=== PATIENT | female | born 1970 | race African-American/Black ===

== ENCOUNTER 2018-04-19 17:54 | Observation (INO) | payer OTHER, SELFPAY ==
[2018-04-19 18:46] LABS: #Monocytes 0.5 thou/uL (0.11-0.59); #Neutrophils 3.2 thou/uL (1.40-6.50); %Basophils 0.5 % (0.0-1.0); %Eosinophils 0.5 % (0.0-10.0); %Lymphocytes 34.8 % (21.0-51.0); %Monocytes 8.6 % (0.0-10.0); %Neutrophils 55.5 % (42.0-75.0); Hemoglobin 13.1 g/dL (12.0-16.0); Mean Corpuscular HGB CONC 34.1 g/dL (32.0-36.0); Mean Corpuscular Volume 90.8 fL (78.0-98.0); Mean Platelet Volume 6.4 fL (7.4-10.4); Platelet Count 261 thou/uL (130-400); RBC Distribution Width 11.8 % (11.5-14.5); Red Blood Cell (RBC) Count 4.24 mill/uL (4.20-5.40); White Blood Cell (WBC) Count 5.7 thou/uL (4.8-10.8)
[2018-04-19 18:53] LABS: Bilirubin Negative (Negative); Blood, Urine Negative (Negative); Clarity CLEAR (Clear); Glucose, Urine (Dipstick) Negative (Negative); Leukocyte Negative (Negative); Nitrite Negative (Negative); Protein, Urine (Dipstick) Negative (Neg-Trace); Specific Gravity, Urine 1.009 (1.002-1.036); pH, Urine 7.5 (5.0-9.0)
[2018-04-19 19:09] LABS: ALT (SGPT) 10 U/L (8-55); AST (SGOT) 17 U/L (5-34); Albumin 4.6 g/dL (3.5-5.0); Alkaline Phosphatase 52 U/L (40-150); Anion Gap 9 mmol/L (10-20); BUN (Urea Nitrogen) 6 mg/dL (7.0-18.7); Bilirubin, Total 0.8 mg/dL (0.2-1.2); Calc. Creatinine Clearance 0 mL/min (70-130); Carbon Dioxide 30 mmol/L (22-29); Chloride 101 mmol/L (98-107); Estimated GFR-MDRD Greater than 90; Globulin 4.2 g/dL (2.4-3.5); Glucose 85 mg/dL (70-105); Potassium 3.4 mmol/L (3.5-5.1); Protein, Total 8.8 g/dL (6.0-8.3); Sodium 137 mmol/L (136-145)
[2018-04-19] MEDS ORDERED: Ondansetron ODT 4 MG TAB ONE (20:32)
--- NOTE | 2018-04-19 21:04 | ULT ---
RIGHT UPPER QUADRANT GALLBLADDER ULTRASOUND: HISTORY: Abdominal pain. COMPARISON: None. FINDINGS: The visualized portion of the pancreas is unremarkable. The portal vein has patent antegrade flow. Hepatic echotexture appears to be relatively normal. The liver measures 14.6 cm in length. The right kidney measures 10.2 x 4.8 x 5.6 cm. The common bile duct measures up to 6 mm with a calcu grace in the common bile duct as it nears the pancreatic head. IMPRESSION: 1. Filling defect within the common bile duct, near the pancreatic head, concerning for partially ob structive choledocholithiasis. Endoscope retrograde cholangiopancreatography recommended. 2. Positive sonographic Post sign may be sequela of an obstructive process within the biliary syst em. POS: [facility]
[2018-04-19] MEDS ORDERED: Ondansetron ODT 4 MG TAB SL PRN (23:10)
[2018-04-19] MEDS ORDERED: Ondansetron HCl/PF 4 MG/2 ML Vial IVP PRN (23:10)
[2018-04-19] MEDS ORDERED: Zolpidem Tartrate 5 MG TAB PO SCH (23:45)
[2018-04-19] MEDS: hydrALAZINE 20 MG/ML VIAL SLOW IVP PRN (23:50)
[2018-04-19] MEDS: Lactated Ringer's 1,000 ML IV SCH (23:55)
[2018-04-20 00:44] VITALS: BMI 31.4
--- NOTE | 2018-04-20 06:13 | HP ---
CHIEF COMPLAINT: Abdominal pain. HISTORY OF PRESENT ILLNESS: This patient is a 47-year-old female, who started experiencing some inte rmittent abdominal pain primarily in the right upper quadrant about a month ago. However, on , 3 days ago, the patient started experiencing more severe pain and this time it was radiating to th e back. With her initial episode, she became diaphoretic and felt like she might pass out. This sub sequently resolved, but she continued to have some intermittent colicky pain until ultimately she had to present to the emergency department because the pain became too severe. She had no associated na usea, vomiting or significant change in her bowel pattern. She has had no fevers or chills. REVIEW OF SYSTEMS: Through 11-system review was otherwise unremarkable other than those things menti oned in history of present illness. PAST MEDICAL HISTORY: Notable for hypertension. PAST SURGICAL HISTORY: Notable for and hysterectomy. FAMILY HISTORY: Reviewed and is unremarkable. SOCIAL HISTORY: The patient is a smoker. She is a nondrinker, nondrug user. She is engaged and con tinues to work two jobs. ALLERGIES: PENICILLIN and HONEY BEE VENOM. HOME MEDICATIONS: Lisinopril/hydrochlorothiazide 20/25 one p.o. daily. PHYSICAL EXAMINATION: VITAL SIGNS: Temperature 98.6, pulse 80, respirations 16, O2 sat 99% on room air, blood pressure is 123/75. GENERAL APPEARANCE: Age appropriate female, in no distress. She is awake, alert, oriented, pleasant , and cooperative. HEENT: PERRL. No OP lesions. NECK: Supple and symmetric without lymphadenopathy. CARDIOVASCULAR: Regular rate and rhythm without murmurs, gallops or rubs. LUNGS: Clear to auscultation bilaterally. ABDOMEN: Soft, nondistended, positive bowel sounds. There is tenderness to palpation, some guarding in the right upper quadrant. SKIN: Warm and dry. LABORATORY DATA AND IMAGING: White count 5.7, hemoglobin 13.1. Sodium 137, potassium 3.4, chloride 101, BUN is 6, creatinine 0.81, bilirubin 0.8, AST 17, ALT 10. Urinalysis is negative. Abdominal ul trasound shows filling defect in the common bile duct near the pancreatic head, concerning for her pa rtially obstructing choledocholithiasis. ERCP was recommended. She also has a positive sonographic Post sign. The common bile duct measures up to 6 mm. ASSESSMENT AND PLAN: 1. Choledocholithiasis. The patient's liver enzymes are normal, but she is having significant disco mfort associated with this. We will continue to hydrate, maintain pain management and consult GI for possible ERCP intervention. 2. Hypertension. The patient had an episode of substantial hypertension earlier, requiring IV hydra lazine. It is substantially improved back to the normal range now. We will continue with her usual home regimen.
[2018-04-20] MEDS: Lactated Ringer's 1,000 ML IV SCH ×4 (07:34→20:22)
[2018-04-20] MEDS ORDERED: Acetaminophen 120 MG Suppository PR PRN (08:27)
[2018-04-20] MEDS ORDERED: Ibuprofen 600 MG TAB PO PRN (08:27)
[2018-04-20] MEDS ORDERED: Acetaminophen 325 MG/10.15 ML UDCUP PO PRN (08:27)
[2018-04-20] MEDS: Lisinopril/Hydrochlorothiazide 20/25 mg Tablet PO SCH ×2 (08:55→18:31)
[2018-04-20] MEDS ORDERED: Promethazine HCl 25 MG/ML VIAL IM/IV PRN (09:29)
[2018-04-20] MEDS ORDERED: Acetaminophen 650 MG in Premix Bag 1 BAG IVPB SCH (09:30)
--- NOTE | 2018-04-20 09:35 | PDOC.EVN ---
Event Note - Event Note Event Note: paged this AM for a headache potentially related to pain medication administration (morphine) Rx given for rectal route of analgesics as well as oral options IV ondansetron already on DEC subsequently re-paged due to patient "sobbing and throwing up" 2 possible etiologies of pain: abdomen and headache Added IV acetaminophen, IV phenergan as needed for symptomatic management If above regimen unable to manage pain, to consider transfer to IMCU for further IV pain medication management
[2018-04-20] MEDS ORDERED: ISOVUE-370 76%-LOCM 1 ML ONE (10:40)
[2018-04-20] MEDS ORDERED: Lidocaine 1% PF 5 ML VIAL ONE (11:25)
[2018-04-20] MEDS ORDERED: Glycopyrrolate 0.2 MG/ML 5 ML SYRINGE ONE (11:25)
[2018-04-20] MEDS ORDERED: Ondansetron HCl/PF 4 MG/2 ML Vial ONE ×2 (11:25→15:00)
[2018-04-20] MEDS ORDERED: PROPOFOL 200 MG/20 ML VIAL ONE (11:25)
[2018-04-20] MEDS ORDERED: Ketorolac Tromethamine 30 MG/ML VIAL ONE (11:25)
[2018-04-20] MEDS ORDERED: Iothalamate Meglumine 60% 50 ML VIAL FS ONE (12:44)
[2018-04-20] MEDS ORDERED: Indomethacin 50 MG SUPP ONE (12:44)
[2018-04-20] MEDS ORDERED: Fentanyl 100 MCG/2 ML VIAL ONE ×4 (12:47→15:43)
[2018-04-20] MEDS ORDERED: Midazolam HCl 2 mg/2 ml Vial ONE (12:47)
[2018-04-20] MEDS ORDERED: Levofloxacin 500 mg/D5W 100 ml Premix Bag ONE (12:51)
--- NOTE | 2018-04-20 13:05 | CON ---
DATE OF CONSULTATION: 04/20/2018 CHIEF COMPLAINT: Abdominal pain. HISTORY OF PRESENT ILLNESS: Ms. Jewell is a 47-year-old woman who has had right upper quadrant, sha rp pain intermittently several times per day over the last month. The pain goes for a couple of jared gael and then fades away; however, last night the pain was more persistent, so she came into the emerg ency room. She gets nauseated after eating, but no vomiting. No diarrhea, constipation or blood in the stool. Her weight has been stable. She had an ultrasound in the emergency room to evaluate her right upper quadrant abdominal pain which showed a filling defect in the common bile duct consistent with choledocholithiasis. Her liver function tests, however, were normal, indicating incomplete bloc kage of the bile duct. She was admitted and given pain medicine. Her primary complaint now has been an intermittent headache, but the abdominal pain is better at the moment. PAST MEDICAL HISTORY: Hypertension. PAST SURGICAL HISTORY: , hysterectomy. FAMILY HISTORY: Negative for GI malignancy. SOCIAL HISTORY: No alcohol, no drugs. She does smoke. REVIEW OF SYSTEMS: Negative x10 systems reviewed except as stated in history of present illness. ALLERGIES: PENICILLIN, HONEY BEES. MEDICATIONS PRIOR TO ADMISSION: Lisinopril with hydrochlorothiazide. PHYSICAL EXAMINATION: VITAL SIGNS: Temperature 98.6, pulse 69, blood pressure 134/80. GENERAL: She is in no acute distress. She is alert and oriented x3. HEENT: Eyes have no scleral icterus. Oropharynx is clear, without lesions. NECK: No cervical or supraclavicular lymphadenopathy. LUNGS: Clear to auscultation bilaterally. HEART: Regular rate and rhythm without murmur. ABDOMEN: Soft. She is tender in the right upper quadrant without guarding. Bowel sounds are presen t. She is nontender, and the rest of her abdomen. EXTREMITIES: No lower extremity edema. NEUROLOGIC: Cranial nerves are grossly intact. LABORATORY: Creatinine 0.81, bilirubin 0.8, AST 17, ALT 10, alkaline phosphatase 52, albumin 4.6. W camila blood cell count 5.7, hemoglobin 13.1, platelets 261. Ultrasound of the abdomen showed a filling defect consistent with a calculus in the common bile duct. The common bile duct measured up to 6 mm in diameter. IMPRESSION: Choledocholithiasis. Her liver function tests are not elevated. However, she may have a nonobstructing stone. Her bile duct is dilated and she presents with intermittent right upper quad rant pain. RECOMMENDATIONS: I will follow through with ERCP. She has being given indomethacin and lactated Rin rocio's bolus to help lower the risk for post-ERCP pancreatitis. The risks and benefits of the procedu re were explained in detail.
[2018-04-20] MEDS ORDERED: Promethazine HCl 25 MG/ML VIAL IM PRN (14:41)
[2018-04-20] MEDS ORDERED: Ondansetron HCl/PF 4 MG/2 ML Vial IVP PRN (14:41)
[2018-04-20] MEDS ORDERED: Promethazine HCl 25 MG/ML VIAL SLOW IVP PRN (14:41)
--- NOTE | 2018-04-20 15:24 | RAD ---
ERCP INTRAOPERATIVE FLUOROSCOPY: HISTORY: Cholecystitis. FINDINGS: Intraoperative fluoroscopy is provided for ERCP. Spot fluoroscopic images show endoscopic catheter a nd contrast overlying the right upper quadrant. There is contrast opacification of a nondilated comm on duct with no filling defect reliably demonstrated. Gallbladder lumen partially opacified. Visual ized intrahepatic biliary radicals are unremarkable. POS: [facility]
[2018-04-20] MEDS ORDERED: Promethazine HCl 25 MG/ML VIAL ONE (15:39)
--- NOTE | 2018-04-20 17:52 | OP ---
DATE OF PROCEDURE: 04/20/2018 PROCEDURE PERFORMED: Endoscopic retrograde cholangiopancreatography with sphincterotomy and balloon sweep of the bile duct. PREOPERATIVE DIAGNOSIS: Choledocholithiasis. She presented with right upper quadrant abdominal pain and tenderness. Ultrasound shows evidence of a stone in the common bile duct. Her LFTs were normal. OPERATIVE NOTE: Informed consent was obtained from the patient. She was given general anesthesia an d placed in the prone position. The side-viewing endoscope was advanced easily to the second portion of the duodenum. There was edematous mucosa, which gives the appearance of submucosal soft nodules around the ampulla. The ampulla was identified and had no significant bile flow from it. The ampull a was cannulated and initially pancreatic duct was cannulated with a wire. The cannula was repositio arlene and ultimately the common bile duct was selectively cannulated with the wire. Cholangiogram was then performed. The cholangiogram showed normal intrahepatic and extrahepatic bile ducts. The commo n bile duct appeared normal overall. The gallbladder did collect some contrast. There was resistanc e to advancement of the catheter at the ampulla. This indicates some degree of ampullary stenosis. A complete sphincterotomy was performed. The 9 mm balloon was then used to sweep the bile duct which passed easily through the sphincterotomy. Occlusion cholangiogram confirmed the duct to be clear. There was rapid drainage of the bile and contrast after sphincterotomy. IMPRESSION: 1. Edematous mucosa with soft submucosal prominence around the ampulla. 2. Normal cholangiogram with normal intra and extrahepatic ducts and common bile duct. 3. Resistance to advancement of the catheter at the level of the ampulla indicating some mild ampull leann stenosis. 4. Complete sphincterotomy performed. 5. A 9 mm balloon was passed through the bile duct and sphincterotomy confirming a clear common bile duct. Occlusion cholangiogram was clear. RECOMMENDATIONS: 1. Follow trend of liver function tests. 2. Evaluate how her right upper quadrant pain responds to the sphincterotomy. 3. Consider cholecystectomy as a next step versus further imaging with CT depending on how her pain and labs indicate.
[2018-04-20] MEDS: hydrALAZINE 20 MG/ML VIAL SLOW IVP PRN (18:32)
--- NOTE | 2018-04-20 18:41 | CT ---
CT ABDOMEN AND PELVIS WITH CONTRAST; 04/20/18 HISTORY: Persistent right upper quadrant pain after ERCP. COMPARISON: Gallbladder ultrasound 05/07/18. There are mild atelectatic changes in the lung bases. No pericardial effusion. Expected intrahepatic biliary gas. There is contrast within the gallbladder. There is left adnexal hypodensity measuring 3.8 cm which may reflect a cyst. There are no dilated loo ps of large or small bowel. There is a hypodensity of the right adrenal gland similar to the comparison examination and has not s ignificantly grown. No hydronephrosis. Normal enhancement of both kidneys. The aortoiliac contour is normal. The appendix is not definitively visualized although there are no secondary signs of acute appendicit is. Pancreas is normal. IMPRESSION: 1. No acute inflammatory process abdomen or pelvis. 2. Expected post ERCP findings. 3. Trace fluid right pericolic gutter may be reactive. 4. Peripheral enhancing hypodensity in the left adnexa may reflect a cyst. 5. Similar appearance to the right adrenal hypodensity. Given the unchanged, this most likely is an adenoma. This is similar dating back to 2013. POS: [facility]
[2018-04-20] MEDS: traMADol HCl 50 MG TAB PO PRN (20:25)
[2018-04-20] MEDS ORDERED: cloNIDine 0.1 MG TAB PO PRN (21:48)
[2018-04-21] MEDS: Lactated Ringer's 1,000 ML IV SCH ×3 (05:19→12:32)
[2018-04-21 06:22] LABS: #Lymphocytes 1.6 thou/uL (1.20-3.40); #Monocytes 0.5 thou/uL (0.11-0.59); #Neutrophils 3.3 thou/uL (1.40-6.50); %Basophils 0.3 % (0.0-1.0); %Eosinophils 0.8 % (0.0-10.0); %Lymphocytes 29.3 % (21.0-51.0); %Monocytes 8.5 % (0.0-10.0); %Neutrophils 61.1 % (42.0-75.0); Hemoglobin 10.8 g/dL (12.0-16.0); Mean Corpuscular HGB CONC 32.3 g/dL (32.0-36.0); Mean Corpuscular Hemoglobin 29.7 pg (27.0-31.0); Mean Corpuscular Volume 91.9 fL (78.0-98.0); Mean Platelet Volume 7.4 fL (7.4-10.4); Platelet Count 241 thou/uL (130-400); RBC Distribution Width 11.7 % (11.5-14.5); Red Blood Cell (RBC) Count 3.64 mill/uL (4.20-5.40); White Blood Cell (WBC) Count 5.4 thou/uL (4.8-10.8)
[2018-04-21 06:46] LABS: ALT (SGPT) 8 U/L (8-55); AST (SGOT) 13 U/L (5-34); Albumin 3.6 g/dL (3.5-5.0); Alkaline Phosphatase 40 U/L (40-150); Anion Gap 10 mmol/L (10-20); BUN (Urea Nitrogen) 5 mg/dL (7.0-18.7); Bilirubin, Total 0.8 mg/dL (0.2-1.2); Calc. Creatinine Clearance 125 mL/min (70-130); Calcium 8.8 mg/dL (7.8-10.44); Carbon Dioxide 24 mmol/L (22-29); Chloride 104 mmol/L (98-107); Estimated GFR-MDRD Greater than 90; Globulin 3.1 g/dL (2.4-3.5); Glucose 95 mg/dL (70-105); Potassium 3.8 mmol/L (3.5-5.1); Protein, Total 6.7 g/dL (6.0-8.3); Sodium 134 mmol/L (136-145)
[2018-04-21] MEDS: Lisinopril/Hydrochlorothiazide 20/25 mg Tablet PO SCH (08:42)
--- NOTE | 2018-04-21 14:25 | PRG ---
DATE OF SERVICE: 04/21/2018 SUBJECTIVE: Ms. Jewell continues to have the right upper quadrant abdominal pain, which is unchange d compared to when she came in. She has had some nausea, for which she has received antiemetics. Sh wei had a normal bowel movement the day before she came in. She has had no change in her pain followin g ERCP. OBJECTIVE: VITAL SIGNS: Temperature 98.4, pulse 79, blood pressure 151/84. GENERAL: She is in no acute distress. She is awake and alert. LUNGS: Clear to auscultation bilaterally. HEART: Regular rate and rhythm. ABDOMEN: Soft, tender in the right upper quadrant and also in right side of the umbilicus. She has no guarding. Bowel sounds are present. EXTREMITIES: Have no lower extremity edema. LABORATORY DATA: Her creatinine 0.72, bilirubin 0.8, AST 13, ALT 8, alkaline phosphatase 40, albumin 3.6. White blood cell count 5.4, hemoglobin 10.8, platelets 241. IMPRESSION: Right upper quadrant to right periumbilical abdominal pain. This may be a functional pa in. She had a suspected stone by ultrasound. However, ERCP showed no evidence of gallstone. She un derwent sphincterotomy and balloon sweep of the bile duct to confirm the duct was clear. There were no stones in the gallbladder. She has had no improvement in the pain after ERCP. CT scan was then p erformed, which again shows no obvious source for her pain. No inflammatory changes in the bowel or around the pancreas. RECOMMENDATIONS: 1. She is tolerating a clear liquid diet well currently. 2. We will plan a HIDA scan for tomorrow morning. If this is abnormal, then proceed with surgical c onsultation for cholecystectomy. 3. If the HIDA scan is normal, then continue a clear liquid diet and give a bowel prep tomorrow for colonoscopy the next day.
--- NOTE | 2018-04-21 15:10 | PDOC.PN ---
- Subjective Encounter Start Date: 04/21/18 Encounter Start Time: 15:08 Subjective: nsg notes rev, joelle ovn, lying in hospital bed, mother at bedside -: reviewed again H&P, notes that in the past month, pain has been less severe -: and occurs approx 30 min post oral intake - even a large amount of water will precipitate the discomfort - Objective Resuscitation Status: Resuscitation Status FULL:Full Resuscitation Vital Signs & Weight: Vital Signs (12 hours) Temp Pulse Resp BP BP Pulse Ox 04/21/18 11:57 98.4 F 79 16 151/84 H 100 04/21/18 08:42 71 125/81 04/21/18 08:11 98.8 F 71 14 125/81 100 04/21/18 07:22 98.7 F 72 16 04/21/18 03:33 98.7 F 72 16 126/77 100 I&O: 04/20/18 04/21/18 04/22/18 06:59 06:59 06:59 Intake Total 2623 Balance 2623 Result Diagrams: 04/21/18 05:26 04/21/18 05:27 Phys Exam - Physical Examination Constitutional: NAD HEENT: PERRLA, moist MMs, sclera anicteric Respiratory: no wheezing, no rales, no rhonchi, clear to auscultation bilateral Cardiovascular: RRR, no significant murmur, no rub Gastrointestinal: soft, no distention, positive bowel sounds TTP RUQ and epigastrium Musculoskeletal: no edema, pulses present Neurological: moves all 4 limbs Psychiatric: normal affect, A&O x 3 Dx/Plan - Plan * RUQ pain * neg ERCP * LFTs unremarkable * plan for HIDA * apprec GI c/s * ? functional abd pain * trial protonix 40mg IV BID diet: currently clear lliq, will need to be NPO pre HIDA activity: as nilda dvt ppx Review of Systems - Medications/Allergies Allergies/Adverse Reactions: Allergies Allergy/AdvReac Type Severity Reaction Status Date / Time Penicillins Allergy Verified 07/09/13 11:55 venom-honey bee Allergy Verified 07/09/13 11:55 [bee venom (honey bee)] Medications: Current Medications Acetaminophen (Tylenol) 120 mg AK Q4H PRN PRN Reason: Headache/Fever or Pain Acetaminophen (Tylenol Elixir) 325 mg PO Q6H PRN PRN Reason: Headache/Fever or Pain Clonidine (Catapres) 0.1 mg PO Q4H PRN PRN Reason: SBP > 180/100 Last Admin: 04/20/18 22:15 Dose: 0.1 mg Lisinopril/HCTZ (Prinizide 20-25) 1 tab PO DAILY [facility] Last Admin: 04/21/18 08:42 Dose: 1 tab Hydralazine HCl (Apresoline) 10 mg SLOW IVP Q6H PRN PRN Reason: SBP Greater Than 180 Last Admin: 04/20/18 18:32 Dose: 10 mg Pantoprazole Sodium (Protonix) 40 mg IVP Q12HR [facility] Promethazine HCl (Phenergan) 25 mg IM/IV Q6H PRN PRN Reason: Nausea/Vomiting Last Admin: 04/20/18 09:44 Dose: 25 mg Sodium Chloride (Flush - Normal Saline) 10 ml IVF Q12HR [facility] Last Admin: 04/21/18 08:43 Dose: Not Given Sodium Chloride (Flush - Normal Saline) 10 ml IVF PRN PRN PRN Reason: Saline Flush Tramadol HCl (Ultram) 50 mg PO Q4H PRN PRN Reason: Pain Last Admin: 04/20/18 20:25 Dose: 50 mg
[2018-04-21] MEDS: traMADol HCl 50 MG TAB PO PRN ×2 (16:42→20:40)
[2018-04-21] MEDS: Zolpidem Tartrate 5 MG TAB PO SCH (20:40)
[2018-04-21] MEDS: Pantoprazole 40 MG VIAL IVP SCH (20:40)
[2018-04-22] MEDS: Acetaminophen 325 MG TAB PO PRN ×2 (04:23→13:04)
[2018-04-22 05:58] LABS: #Lymphocytes 1.9 thou/uL (1.20-3.40); #Monocytes 0.5 thou/uL (0.11-0.59); #Neutrophils 2.7 thou/uL (1.40-6.50); %Basophils 0.6 % (0.0-1.0); %Eosinophils 0.8 % (0.0-10.0); %Monocytes 9.1 % (0.0-10.0); %Neutrophils 52.5 % (42.0-75.0); Hemoglobin 12.1 g/dL (12.0-16.0); Mean Corpuscular Hemoglobin 30.8 pg (27.0-31.0); Mean Corpuscular Volume 90.6 fL (78.0-98.0); Mean Platelet Volume 6.7 fL (7.4-10.4); Platelet Count 247 thou/uL (130-400); RBC Distribution Width 11.4 % (11.5-14.5); Red Blood Cell (RBC) Count 3.94 mill/uL (4.20-5.40); White Blood Cell (WBC) Count 5.2 thou/uL (4.8-10.8)
[2018-04-22 06:06] LABS: ALT (SGPT) 8 U/L (8-55); AST (SGOT) 13 U/L (5-34); Albumin 3.9 g/dL (3.5-5.0); Alkaline Phosphatase 42 U/L (40-150); Anion Gap 13 mmol/L (10-20); BUN (Urea Nitrogen) 5 mg/dL (7.0-18.7); Bilirubin, Total 0.9 mg/dL (0.2-1.2); Calc. Creatinine Clearance 129 mL/min (70-130); Calcium 9.2 mg/dL (7.8-10.44); Carbon Dioxide 22 mmol/L (22-29); Chloride 103 mmol/L (98-107); Estimated GFR-MDRD Greater than 90; Globulin 3.6 g/dL (2.4-3.5); Glucose 94 mg/dL (70-105); Potassium 3.6 mmol/L (3.5-5.1); Protein, Total 7.5 g/dL (6.0-8.3); Sodium 134 mmol/L (136-145)
[2018-04-22] MEDS: traMADol HCl 50 MG TAB PO PRN ×2 (13:05→18:17)
[2018-04-22] MEDS: Lisinopril/Hydrochlorothiazide 20/25 mg Tablet PO SCH (13:05)
[2018-04-22] MEDS: Pantoprazole 40 MG VIAL IVP SCH ×2 (13:05→20:09)
--- NOTE | 2018-04-22 13:13 | PRG ---
DATE OF SERVICE: 04/22/2018 SUBJECTIVE: Ms. Jewell continues to have the right-sided abdominal pain. She is undergoing HIDA sc an this afternoon. OBJECTIVE: VITAL SIGNS: Temperature 98.2, pulse 75, blood pressure 122/72. GENERAL: She is in no acute distress. She is alert and oriented x3. LUNGS: Clear to auscultation bilaterally. HEART: Regular rate and rhythm. ABDOMEN: Tender in the right upper abdomen to right periumbilical area. There is no guarding today. EXTREMITIES: No lower extremity edema. LABORATORY DATA: White blood cell count 5.2, hemoglobin 12.1, platelets 247. Creatinine 0.7. LFTs remain normal. IMPRESSION: Right upper quadrant to right periumbilical abdominal pain. CT scan is negative for obv ious source for her pain. ERCP revealed no stones in the bile duct which was thought to have been se en by ultrasound. RECOMMENDATIONS: 1. If the HIDA scan is abnormal today, then we will consult General Surgery to evaluate for a cholec ystectomy. 2. If the HIDA scan is normal, then we will give a bowel prep this evening for colonoscopy tomorrow.
--- NOTE | 2018-04-22 14:27 | NM ---
HEPATOBILIARY SCAN: Comparison: None. History: Right upper quadrant abdominal pain. Technique: A hepatobiliary scan was performed after administration of 4.6 mCi Technetium 99M Mebrofen in. FINDINGS: Prompt uptake of the radiopharmaceutical by the liver is seen. Biliary activity is seen within 15 min utes. Gallbladder activity is seen within 30 minutes. Bowel activity is seen within 20 minutes. A gallbladder ejection fraction was estimated after giving CCK. This is estimated at 17%. IMPRESSION: Poor gallbladder ejection fraction can be seen with gallbladder dyskinesia. POS: [facility]
[2018-04-22] MEDS ORDERED: Bisacodyl 5 MG TAB PO PRN (16:49)
[2018-04-22] MEDS ORDERED: Senokot 8.6 MG TAB PO PRN (16:49)
[2018-04-22] MEDS: Zolpidem Tartrate 5 MG TAB PO SCH (20:09)
--- NOTE | 2018-04-22 23:43 | PDOC.PN ---
- Subjective Encounter Start Date: 04/22/18 Encounter Start Time: 14:00 Subjective: nsg notes rev, joelle ovn, still has RUQ abd pain, at bedside - Objective Resuscitation Status: Resuscitation Status FULL:Full Resuscitation Vital Signs & Weight: Vital Signs (12 hours) Temp Pulse Resp BP BP Pulse Ox 04/22/18 23:36 98.3 F 78 16 125/75 100 04/22/18 20:27 99.1 F 80 20 145/90 H 100 04/22/18 20:09 99.1 F 80 20 04/22/18 15:15 98.6 F 90 14 126/73 100 04/22/18 13:05 77 155/93 H 04/22/18 13:00 99.4 F 77 16 155/93 H 99 I&O: 04/21/18 04/22/18 04/23/18 06:59 06:59 06:59 Intake Total 2623 1500 2355 Balance 2623 1500 2355 Result Diagrams: 04/23/18 05:29 04/23/18 05:29 Phys Exam - Physical Examination Constitutional: NAD HEENT: PERRLA, moist MMs, sclera anicteric Respiratory: no wheezing, no rales, no rhonchi Cardiovascular: RRR, no significant murmur, no rub Gastrointestinal: soft, positive bowel sounds ttp RUQ, epigastrium Musculoskeletal: no edema, pulses present Neurological: moves all 4 limbs Psychiatric: normal affect, A&O x 3 Dx/Plan - Plan * * RUQ pain, persistent * neg ERCP * LFTs unremarkable * plan for HIDA * apprec GI c/s * ? functional abd pain * trial protonix 40mg IV BID diet:clear liq activity: as nilda dvt ppx Review of Systems - Medications/Allergies Allergies/Adverse Reactions: Allergies Allergy/AdvReac Type Severity Reaction Status Date / Time Penicillins Allergy Verified 07/09/13 11:55 venom-honey bee Allergy Verified 07/09/13 11:55 [bee venom (honey bee)] Medications: Current Medications Acetaminophen (Tylenol) 120 mg SC Q4H PRN PRN Reason: Headache/Fever or Pain Acetaminophen (Tylenol) 325 mg PO Q6H PRN PRN Reason: Headache/Fever or Pain Last Admin: 04/23/18 03:37 Dose: 325 mg Bisacodyl (Dulcolax) 10 mg PO DAILYPRN PRN PRN Reason: Constipation Clonidine (Catapres) 0.1 mg PO Q4H PRN PRN Reason: SBP > 180/100 Last Admin: 04/20/18 22:15 Dose: 0.1 mg Lisinopril/HCTZ (Prinizide 20-25) 1 tab PO DAILY [facility] Last Admin: 04/22/18 13:05 Dose: 1 tab Hydralazine HCl (Apresoline) 10 mg SLOW IVP Q6H PRN PRN Reason: SBP Greater Than 180 Last Admin: 04/20/18 18:32 Dose: 10 mg Pantoprazole Sodium (Protonix) 40 mg IVP Q12HR [facility] Last Admin: 04/22/18 20:09 Dose: 40 mg Promethazine HCl (Phenergan) 25 mg IM/IV Q6H PRN PRN Reason: Nausea/Vomiting Last Admin: 04/20/18 09:44 Dose: 25 mg Senna (Senokot) 2 tab PO HSPRN PRN PRN Reason: Constipation Sodium Chloride (Flush - Normal Saline) 10 ml IVF Q12HR [facility] Last Admin: 04/22/18 20:09 Dose: 10 ml Sodium Chloride (Flush - Normal Saline) 10 ml IVF PRN PRN PRN Reason: Saline Flush Tramadol HCl (Ultram) 50 mg PO Q4H PRN PRN Reason: Pain Last Admin: 04/22/18 18:17 Dose: 50 mg Zolpidem Tartrate (Ambien) 5 mg PO [facility] Last Admin: 04/22/18 20:09 Dose: 5 mg
[2018-04-23] MEDS: Acetaminophen 325 MG TAB PO PRN (03:37)
[2018-04-23 05:48] LABS: #Eosinphils 0.1 thou/uL (0.0-0.7); #Lymphocytes 1.5 thou/uL (1.20-3.40); #Monocytes 0.5 thou/uL (0.11-0.59); #Neutrophils 2.5 thou/uL (1.40-6.50); %Basophils 0.4 % (0.0-1.0); %Eosinophils 1.5 % (0.0-10.0); %Lymphocytes 33.2 % (21.0-51.0); %Monocytes 11.1 % (0.0-10.0); %Neutrophils 53.8 % (42.0-75.0); Hemoglobin 12.7 g/dL (12.0-16.0); Mean Corpuscular Hemoglobin 30.9 pg (27.0-31.0); Mean Corpuscular Volume 91.1 fL (78.0-98.0); Mean Platelet Volume 6.9 fL (7.4-10.4); Platelet Count 264 thou/uL (130-400); RBC Distribution Width 11.5 % (11.5-14.5); Red Blood Cell (RBC) Count 4.11 mill/uL (4.20-5.40); White Blood Cell (WBC) Count 4.6 thou/uL (4.8-10.8)
[2018-04-23 06:04] LABS: ALT (SGPT) 8 U/L (8-55); AST (SGOT) 13 U/L (5-34); Albumin 4.3 g/dL (3.5-5.0); Alkaline Phosphatase 47 U/L (40-150); Anion Gap 12 mmol/L (10-20); BUN (Urea Nitrogen) 5 mg/dL (7.0-18.7); Bilirubin, Total 0.7 mg/dL (0.2-1.2); Calc. Creatinine Clearance 114 mL/min (70-130); Calcium 9.5 mg/dL (7.8-10.44); Carbon Dioxide 25 mmol/L (22-29); Chloride 103 mmol/L (98-107); Estimated GFR-MDRD Greater than 90; Glucose 98 mg/dL (70-105); Potassium 3.6 mmol/L (3.5-5.1); Protein, Total 8.3 g/dL (6.0-8.3); Sodium 136 mmol/L (136-145)
[2018-04-23] MEDS: Pantoprazole 40 MG VIAL IVP SCH ×2 (09:07→21:24)
[2018-04-23] MEDS: Lisinopril/Hydrochlorothiazide 20/25 mg Tablet PO SCH (09:07)
--- NOTE | 2018-04-23 10:46 | PRG ---
DATE OF SERVICE: 04/23/2018 SUBJECTIVE: She continues to have right upper quadrant abdominal pain. Her last bowel movement was the day before admission. She underwent a HIDA scan yesterday. OBJECTIVE: VITAL SIGNS: Temperature 99, pulse 80, blood pressure 131/77. GENERAL: She is in no acute distress, awake and alert, oriented x3. LUNGS: Clear to auscultation bilaterally. HEART: Regular rate and rhythm. ABDOMEN: Tender in the right upper quadrant. Bowel sounds are active. EXTREMITIES: No lower extremity edema. IMPRESSION: Biliary dyskinesia. She has intermittent right upper quadrant pain over the last month. The pain is now constant. HIDA scan did show a reduced gallbladder ejection fraction at 17%. No o ther obvious source for her pain has been identified by CT scan. ERCP did not show a stone in her bi le duct. She has had some constipation, but a CT scan did not show significant retention of stool in the right colon on 04/20/2018 to indicate that this is the primary source of her pain. She could ly ve functional bowel pain. There is no other lower GI symptoms or bleeding to indicate a colonic sour ce. RECOMMENDATIONS: We will consult General Surgery, Dr. Gonzalez, to evaluate her gallbladder. She will likely benefit from a cholecystectomy at this point.
[2018-04-23] MEDS ORDERED: ePHEDrine/0.9% NaCl/PF SYRINGE 50 mg/10 ml ONE (13:45)
[2018-04-23] MEDS ORDERED: Glycopyrrolate 0.2 MG/ML 5 ML SYRINGE ONE (13:45)
[2018-04-23] MEDS ORDERED: Dexamethasone 20 MG/5 ML VIAL ONE (13:45)
[2018-04-23] MEDS ORDERED: PROPOFOL 200 MG/20 ML VIAL ONE (13:45)
[2018-04-23] MEDS ORDERED: Lidocaine 1% PF 5 ML VIAL ONE (13:45)
[2018-04-23] MEDS ORDERED: Ondansetron HCl/PF 4 MG/2 ML Vial ONE (13:45)
[2018-04-23] MEDS ORDERED: PHENYLEPHRINE-NS 100 MCG/ML 10 ML SYRINGE ONE (13:45)
[2018-04-23] MEDS ORDERED: Scopolamine 1.5 mg/72 hour Patch TD SCH (14:00)
[2018-04-23] MEDS ORDERED: Ketorolac Tromethamine 30 MG/ML VIAL IVP SCH (14:15)
[2018-04-23] MEDS ORDERED: Acetaminophen 1,000 MG in Premix Bag 1 BAG IVPB SCH (14:15)
[2018-04-23] MEDS ORDERED: Ketorolac Tromethamine 30 MG/ML VIAL ONE (14:58)
[2018-04-23] MEDS ORDERED: Bupivacaine HCl 0.5%/Epinephrine 1:200,000/PF 30 ml Vial ONE ×2 (15:23→15:24)
--- NOTE | 2018-04-23 15:23 | HP ---
HISTORY OF PRESENT ILLNESS: A 47-year-old black female admitted for right upper quadrant pain and ep igastric pain. CAT scan obtained on admission revealed no acute inflammatory changes. Prior to this , she had an ultrasound suggested choledocholithiasis. Other liver function tests were normal, bile duct was [address] Jeffries saw her and cholangiograms obtained were normal. HIDA scan subsequently ob tained revealed HIDA ejection fraction of 17%. Patient has been having pain intermittently for sever al months. She is tender in the right upper quadrant. She has a sonographic positive Post sign on admission. ALLERGIES: PENICILLIN. TOBACCO: Less than one-half pack per day. ALCOHOL: None. PAST SURGICAL HISTORY: Lumbar surgery x5, total abdominal hysterectomy and . PAST MEDICAL HISTORY: Hypertension. MEDICATIONS AT HOME: Lisinopril/hydrochlorothiazide daily. REVIEW OF SYSTEMS: Ten point noncontributory. SOCIAL: Patient works as a cook. FAMILY HISTORY: Negative. PHYSICAL EXAMINATION: VITAL SIGNS: 5 feet and 3, 167 pounds, 31 BMI, 98.6, 77, 123/77. HEENT: Unremarkable. LUNGS: Clear to auscultation. CARDIAC: Regular rate and rhythm without murmur or gallop. ABDOMEN: Soft and tenderness in right upper quadrant with guarding. Positive Post's. EXTREMITIES: Unremarkable. IMAGING DATA: Liver function tests are normal. Basic metabolic profile normal. White count 4, hemo globin 12. ASSESSMENT AND PLAN: Cholecystitis. ERCP was normal. Sonographic positive Post sign, biliary dys kinesia by HIDA scan. PLAN: 1. Laparoscopic video cholecystectomy. Risks of infection, bleeding, and re-operation explained. S he consents. 2. Hypertension.
[2018-04-23] MEDS ORDERED: Midazolam HCl 2 mg/2 ml Vial ONE (15:41)
[2018-04-23] MEDS ORDERED: Fentanyl 100 MCG/2 ML VIAL ONE ×4 (15:41→18:28)
[2018-04-23] MEDS ORDERED: Scopolamine 1.5 mg/72 hour Patch ONE (15:58)
[2018-04-23] MEDS ORDERED: Levofloxacin 500 mg/D5W 100 ml Premix Bag ONE (16:01)
[2018-04-23] MEDS ORDERED: Promethazine HCl 25 MG/ML VIAL SLOW IVP PRN (17:24)
[2018-04-23] MEDS ORDERED: Ondansetron HCl/PF 4 MG/2 ML Vial IVP PRN (17:24)
[2018-04-23] MEDS ORDERED: Promethazine HCl 25 MG/ML VIAL IM PRN (17:24)
[2018-04-23] MEDS ORDERED: SUGAMMADEX SODIUM 200 MG/2 ML VIAL ONE (17:31)
[2018-04-23] MEDS ORDERED: Polyethylene Glycol 3350 17 GM Packet PO PRN (17:45)
[2018-04-23] MEDS ORDERED: Ibuprofen 600 MG TAB PO PRN (17:45)
[2018-04-23] MEDS ORDERED: Acetaminophen 500 MG TAB PO SCH (18:00)
[2018-04-23] MEDS: traMADol HCl 50 MG TAB PO PRN (20:22)
[2018-04-23] MEDS: Zolpidem Tartrate 5 MG TAB PO SCH (21:24)
--- NOTE | 2018-04-23 23:24 | OP ---
DATE OF PROCEDURE: 04/23/2018 PREOPERATIVE DIAGNOSIS: Cholecystitis, diminished gallbladder ejection fraction. SURGEON: Ryan Gonzalez MD ANESTHESIA: General, local 0.5% Marcaine with epinephrine 30 mL. PROCEDURE PERFORMED: Laparoscopic video cholecystectomy. INDICATIONS: The patient is a 47-year-old black female presenting with right upper quadrant pain. U ltrasound demonstrating suggestion of choledocholithiasis with a normal bile duct caliber, normal isatu er function test, for which she underwent ERCP that was normal. CAT scan obtained was normal. HIDA scan revealed low biliary ejection fraction and Dr. Jeffries consulted me for a laparoscopic cholecystec misha for ongoing pain that she had had for several months. DESCRIPTION OF PROCEDURE: The patient was taken to the operating room, where under general anesthesi a, abdomen was prepared with ChloraPrep and draped in routine fashion. Local anesthetic infiltrated into the skin and subcutaneous tissue about each port site. A 0.5% Marcaine with epinephrine was use d. Infraumbilical incision was made. Pneumoperitoneum to 15 mmHg was obtained with a Veress needle, replacing it with a 5-port, laparoscope inserted. Right subxiphoid incision was made and 11-port pl aced. Right subcostal incision was made in midclavicular and anterior axillary lines, 5-ports placed . Gallbladder wall was thickened and edematous. Fundus of the gallbladder was grasped, retracted ce phalad. Infundibulum of the gallbladder grasped and retracted laterally. Cystic artery and duct dis sected free. Critical view obtained. Cystic artery and duct doubly clipped proximally, divided, and gallbladder dissected free obtaining good hemostasis prior to division of final peritoneal attachmen ts. Gallbladder and contents were removed and submitted to Pathology. Good hemostasis was assured w ith the cautery. Irrigant and pneumoperitoneum were evacuated. All instruments were removed. All s kin incisions were approximated with interrupted subdermal 4-0 Monocryl and DermaGlue applied.
[2018-04-24] MEDS: traMADol HCl 50 MG TAB PO PRN ×2 (03:46→09:43)
[2018-04-24 04:12] VITALS: TEMP 98.6
[2018-04-24 07:40] VITALS: BP 150/88
[2018-04-24] MEDS: Pantoprazole 40 MG VIAL IVP SCH (08:02)
[2018-04-24] MEDS: Lisinopril/Hydrochlorothiazide 20/25 mg Tablet PO SCH (08:02)
[2018-04-24] MEDS ORDERED: Polyethylene Glycol 3350 17 GM Packet PO SCH (09:00)
--- NOTE | 2018-04-25 01:46 | DIS ---
DATE OF ADMISSION: 04/19/2018 DATE OF DISCHARGE: 04/24/2018 DISCHARGE DIAGNOSES: 1. Cholecystitis with biliary dyskinesia. 2. Hypertension, stable. 3. Status post laparoscopic cholecystectomy on 04/23/2018. CONSULTATIONS: Dr. Gonzalez with General Surgery Service. Dr. Jeffries with GI Service. PERTINENT LAB AND X-RAY FINDINGS: Sodium ranged between 134-137, potassium ranged between 3.4-3.8. LFTs within normal limits. Lipase 24. CBC showed a white blood cell count ranging between 4.6-5.7, hemoglobin ranged between 12.1-13.1. Abdominal ultrasound dated 04/19/2018 showed filling defect wit hin the common bile duct concerning for obstructive choledocholithiasis. CT of the abdomen and pelvi s dated 04/20/2018, showed no acute inflammatory process of the abdomen or pelvis. Hepatobiliary sca n dated 04/22/2018 showed gallbladder ejection fraction at 17%. HOSPITAL COURSE: The patient was initially admitted after presenting with recurrent abdominal pain l ocalizing to the right upper quadrant. The patient underwent extensive evaluation including multiple imaging studies showing questionable choledocholithiasis. The patient was initially evaluated by [facility] GI service, undergoing ERCP evaluation on 04/20/2018. Normal cholangiogram with intra and extrahep atic duct anatomy and common bile duct anatomy was noted. Mild ampullary stenosis was noted. Comple te sphincterotomy was performed and a balloon was passed in the bile duct confirming patent common bi le duct. The patient underwent subsequent evaluation by the General Surgery Service with persistent abdominal discomfort and concern for acute on chronic cholecystitis. The patient proceeded with lapa roscopic cholecystectomy on 04/23/2018 without complication. Overall, patient did remain clinically stable throughout the hospital course and tolerating regular oral intake. The patient transitioned t o oral pain control and ready for discharge on 04/24/2018. DISCHARGE MEDICATIONS: 1. Tylenol 1000 mg p.o. q.6 hours p.r.n. 2. Motrin 600 mg p.o. q.6 hours p.r.n. 3. Lisinopril/hydrochlorothiazide 20/25 mg 1 tab p.o. daily. 4. Senokot 2 tablets p.o. at bedtime p.r.n. 5. Ultram 50 mg p.o. q.4 hours p.r.n. FOLLOWUP: Patient is to follow up with her primary care provider, Dr. David Smith within 7 days of discharge. The patient will follow up with Dr. Gonzalez with General Surgery Service 2-3 weeks afte r discharge. CONDITION ON DISCHARGE: Stable. ACTIVITY: Ad trisha. DIET: Heart healthy. CODE STATUS: FULL. DISPOSITION: Home on 04/24/2018.
== END 2018-04-24 10:04 | disposition home or self-care (01) ==
LOC: ERS 17:54 → SURG B 23:02
PROVIDERS: ADMIT Internal Medicine; ATTEND Internal Medicine
PROC: 0F798ZZ Dilation of Common Bile Duct, Via Natural or Artificial Opening Endoscopic (ICD-10-PCS; 2018-04-20)
PROC: 0FT44ZZ Resection of Gallbladder, Percutaneous Endoscopic Approach (ICD-10-PCS; principal; 2018-04-23)
DX: K81.1 Chronic cholecystitis (principal); K82.8 Other specified diseases of gallbladder; F17.210 Nicotine dependence, cigarettes, uncomplicated; I10 Essential (primary) hypertension; Z79.899 Other long term (current) drug therapy; Z88.0 Allergy status to penicillin; Z91.030 Bee allergy status
CPT/HCPCS: 36415; 74177; 74330; 76705; 78227; 80053; 81003; 83690; 85025; 88304; 96361; 96374; 96375; 96376; A4216; A9537; C9113; G0378; J0131; J0360; J0670; J1100; J1885; J1956; J2001; J2250; J2270; J2405; J2550; J2704; J3010; Q0162; Q9961

== ENCOUNTER 2018-05-17 21:15 | Emergency (ER) | payer SELFPAY ==
[2018-05-17 21:58] LABS: #Lymphocytes 1.6 thou/uL (1.20-3.40); #Monocytes 0.4 thou/uL (0.11-0.59); #Neutrophils 1.5 thou/uL (1.40-6.50); %Basophils 1.2 % (0.0-1.0); %Eosinophils 1.1 % (0.0-10.0); %Monocytes 10.5 % (0.0-10.0); %Neutrophils 42.3 % (42.0-75.0); Hemoglobin 13.1 g/dL (12.0-16.0); Mean Corpuscular HGB CONC 34.3 g/dL (32.0-36.0); Mean Corpuscular Volume 90.5 fL (78.0-98.0); Mean Platelet Volume 6.5 fL (7.4-10.4); Platelet Count 299 thou/uL (130-400); RBC Distribution Width 11.7 % (11.5-14.5); Red Blood Cell (RBC) Count 4.21 mill/uL (4.20-5.40); White Blood Cell (WBC) Count 3.6 thou/uL (4.8-10.8)
[2018-05-17 22:20] LABS: ALT (SGPT) 13 U/L (8-55); AST (SGOT) 16 U/L (5-34); Albumin 4.2 g/dL (3.5-5.0); Alkaline Phosphatase 61 U/L (40-150); Anion Gap 11 mmol/L (10-20); BUN (Urea Nitrogen) 4 mg/dL (7.0-18.7); Bilirubin, Total 0.4 mg/dL (0.2-1.2); Calc. Creatinine Clearance 0 mL/min (70-130); Calcium 9.5 mg/dL (7.8-10.44); Carbon Dioxide 26 mmol/L (22-29); Chloride 103 mmol/L (98-107); Estimated GFR-MDRD Greater than 90; Globulin 4.1 g/dL (2.4-3.5); Glucose 96 mg/dL (70-105); Lipase 44 U/L (8-78); Potassium 3.6 mmol/L (3.5-5.1); Protein, Total 8.3 g/dL (6.0-8.3); Sodium 136 mmol/L (136-145)
[2018-05-18] MEDS ORDERED: Morphine 4 MG/ML VIAL ONE (01:41)
[2018-05-18] MEDS ORDERED: Ondansetron HCl/PF 4 MG/2 ML Vial ONE (01:41)
[2018-05-18 01:51] LABS: Bilirubin Negative (Negative); Blood, Urine Negative (Negative); Clarity CLOUDY (Clear); Glucose, Urine (Dipstick) Negative (Negative); Leukocyte Small (Negative); Nitrite Negative (Negative); Protein, Urine (Dipstick) Negative (Neg-Trace); Specific Gravity, Urine 1.016 (1.002-1.036); pH, Urine 6.5 (5.0-9.0)
[2018-05-18 01:53] LABS: Bacteria/HPF Rare-Few HPF (None Seen); Hyaline Casts/LPF 0-3 HYALINE CAST LPF (0-3 Hyaline); Pathc Cast-AUWi Flag 0.43 (0-2.49); Pregnancy Test - Urine (BHCG) Negative (Negative); Pregu Control Background? CLEAR/WHITE (CLR/WHITE); Pregu Control Bar Appear? YES (CONTROL BAR); RBC/HPF 0-3 HPF (0-3); Specific Gravity 1.016 (1.002-1.036); Squamous Epithelial 0-3 HPF (0-3)
[2018-05-18] MEDS ORDERED: methylPREDNISolone Sod Succ/PF 125 MG/2 ML VIAL ONE (01:59)
[2018-05-18] MEDS ORDERED: diphenhydrAMINE 50 MG/ML VIAL ONE (01:59)
[2018-05-18] MEDS ORDERED: EPINEPHrine 1 MG/ML AMP ONE (02:13)
[2018-05-18] MEDS ORDERED: Famotidine/PF 20 mg/2ml Vial SLOW IVP SCH (02:30)
--- NOTE | 2018-05-18 09:22 | CT ---
PRELIMINARY REPORT/[facility]/EMERGENTY AFTER-HOURS PROCEDURE CT Abdomen and Pelvis With Intravenous Contrast EXAM DATE/TIME: 05/18/2018 1:22 AM CLINICAL HISTORY: 47 years old, female; Pain; Abdominal pain; Generalized; Prior surgery; Patient HX: Er 7; 47 yo f pre sents to ed with abdominal pain. PT reports abd pain for about a week, with associated nausea and vom iting since thursday and associated diarrhea since last night. PT reports she "cant keep any food down. " PT reports chronic back pain, but pain is currently worse than usual. PT reports she had her gallbladder removed on april 23. PT reports chills, denies fever. PT denies any other symptoms. TECHNIQUE: Axial computed tomography images of the abdomen and pelvis with intravenous contrast. Coronal reformatted images were created and reviewed. COMPARISON: No relevant prior studies available. FINDINGS: Lower thorax: No acute findings. ABDOMEN: Liver: Normal. No mass. Gallbladder and bile ducts: Prior cholecystectomy. Pancreas: Normal. No ductal dilation. Spleen: Normal. No splenomegaly. Adrenals: 2.5 cm homogeneous right adrenal mass. In the absence of a history of malignancy, this is l ikely benign. Kidneys and ureters: Normal. No hydronephrosis. Stomach and bowel: The wall of the ascending colon appears thickened which may be due to its nondiste nded state; however, colitis cannot be excluded on this study. No intestinal obstruction. Appendix: Appendix not visualized. No evidence of appendicitis. PELVIS: Bladder: Unremarkable as visualized. Reproductive: 3.3 cm right ovarian cyst. 1.9 cm left ovarian cyst. Prior hysterectomy. ABDOMEN and PELVIS: Intraperitoneal space: Normal. No free air. No significant fluid collection. Bones/joints: No acute fracture. No dislocation. Soft tissues: Unremarkable. Vasculature: Normal. No abdominal aortic aneurysm. Lymph nodes: Normal. No enlarged lymph nodes. IMPRESSION: 1. 3.3 cm right ovarian cyst. 1.9 cm left ovarian cyst. 2. The wall of the ascending colon appears thickened which may be due to its nondistended state; costa frank, colitis cannot be excluded on this study. Thank you for allowing us to participate in the care of your patient. Dictated and Authenticated by: Checo Engle MD 05/18/2018 1:52 AM Central Time ([place] [employer] [place]) FINAL INTERPRETATION CT ABDOMEN AND PELVIS: 05/18/2018 HISTORY: Generalized abdominal pain with nausea and vomiting/diarrhea. COMPARISON: 04/20/2018 FINDINGS: The imaged lung bases are unremarkable. Cholecystectomy clips are present. No free intraperitoneal air. The liver, spleen, pancreas, right adrenal gland, and bilateral kidneys are unremarkable. Lobu lated right adrenal mass noted posterior to intrahepatic IVC, measuring 1.7 cm in transverse dimensio n, as seen on the 04/20/2018 exam. Lesion demonstrates Hounsfield units of approximately 60, nonspec ific. When compared to examination dating back to 07/19/2014, this adrenal lesion has not significan tly changed. Low density lesion noted in the right hemipelvis, measuring 3.1 cm, likely on the basis of a low dens ity right ovarian cystic lesion. Appendix appears unremarkable. No evidence for bowel obstruction. Areas of possible colonic wall th ickening noted, particularly the region of the ascending colon and in the region of the splenic flexu re. This is a finding of uncertain significance, given lack of oral contrast and the decompressed na ture of the colon. Underlying lesion or colitis cannot be excluded. Vascular structures appear patent. No lymphadenopathy seen in the abdomen or pelvis. Osseous struct ures of the abdomen/pelvis demonstrate no acute findings. A segment of catheter tubing is seen withi n the thecal sac with no associated generator or reservoir, a stable finding. There is a low density lesion in the left hemipelvis, best seen on image 62, measuring up to 1.9 cm, suggesting a nonspecific left ovarian low density/cystic lesion. IMPRESSION: 1. Low density adnexal lesions, which could be better evaluated with follow-up pelvic ultrasound. 2. Questionable areas of colonic wall thickening, including the ascending colon and the splenic flex ure. I agree with the preliminary [facility] report, dictated by . POS: [facility]
[2018-05-18] MEDS ORDERED: ISOVUE-370 76%-LOCM 1 ML ONE (13:52)
== END 2018-05-18 06:19 | disposition home or self-care (01) ==
LOC: ERS 21:15
DX: T78.2XXA Anaphylactic shock, unspecified, initial encounter (principal); K52.9 Noninfective gastroenteritis and colitis, unspecified; Z71.6 Tobacco abuse counseling; I10 Essential (primary) hypertension; F17.210 Nicotine dependence, cigarettes, uncomplicated; Z79.899 Other long term (current) drug therapy
CPT/HCPCS: 36415; 74177; 80053; 81003; 81015; 81025; 83690; 85025; 96361; 96372; 96374; 96375; 99406; J0171; J1200; J2270; J2405; J2930; S0028

== ENCOUNTER 2018-11-16 11:03 | Emergency (ER) | payer SELFPAY ==
[2018-11-16 11:38] LABS: #Lymphocytes 1.8 thou/uL (1.20-3.40); #Monocytes 0.5 thou/uL (0.11-0.59); #Neutrophils 2.6 thou/uL (1.40-6.50); %Basophils 0.6 % (0.0-1.0); %Lymphocytes 35.6 % (21.0-51.0); %Monocytes 9.7 % (0.0-10.0); %Neutrophils 53.2 % (42.0-75.0); Hemoglobin 12.9 g/dL (12.0-16.0); Mean Corpuscular HGB CONC 31.9 g/dL (32.0-36.0); Mean Corpuscular Hemoglobin 29.4 pg (27.0-31.0); Mean Corpuscular Volume 92.2 fL (78.0-98.0); Mean Platelet Volume 7.4 fL (7.4-10.4); Platelet Count 288 thou/uL (130-400); RBC Distribution Width 11.7 % (11.5-14.5); Red Blood Cell (RBC) Count 4.39 mill/uL (4.20-5.40); White Blood Cell (WBC) Count 4.9 thou/uL (4.8-10.8)
[2018-11-16] MEDS ORDERED: Nitroglycerin 2% Ointment 1 INCH/1 GM Packet ONE (11:57)
[2018-11-16] MEDS ORDERED: Aspirin Chewable 81 MG TAB ONE (11:57)
[2018-11-16 11:59] LABS: ALT (SGPT) 15 U/L (8-55); AST (SGOT) 18 U/L (5-34); Albumin 4.3 g/dL (3.5-5.0); Alkaline Phosphatase 61 U/L (40-150); Anion Gap 13 mmol/L (10-20); BUN (Urea Nitrogen) Less than 4 mg/dL (7.0-18.7); Bilirubin, Total 0.5 mg/dL (0.2-1.2); Calc. Creatinine Clearance 0 mL/min (70-130); Calcium 9.2 mg/dL (7.8-10.44); Carbon Dioxide 24 mmol/L (22-29); Chloride 104 mmol/L (98-107); Estimated GFR-MDRD Greater than 90; Globulin 4.1 g/dL (2.4-3.5); Glucose 87 mg/dL (70-105); Lipase 27 U/L (8-78); Potassium 3.8 mmol/L (3.5-5.1); Protein, Total 8.4 g/dL (6.0-8.3); Sodium 137 mmol/L (136-145)
--- NOTE | 2018-11-16 12:13 | RAD ---
PORTABLE AP CHEST X-RAY: 11/16/2018 HISTORY: Chest pain and high blood pressure. COMPARISON: 08/16/2018 FINDINGS: There appears to be mild prominence of the ascending thoracic aorta, but this is probably related to mild tortuosity and is stable compared to the prior exam. The cardiac silhouette is magnified by pro jection. The pulmonary vasculature is within normal limits. The lungs remain clear. There has been no interval change when compared to the prior exam. IMPRESSION: No acute cardiopulmonary process. POS: [facility]
[2018-11-16] MEDS ORDERED: Acetaminophen 500 MG TAB ONE (13:30)
== END 2018-11-16 15:14 | disposition home or self-care (01) ==
LOC: ERS 11:03
DX: R07.89 Other chest pain (principal); I10 Essential (primary) hypertension; F17.210 Nicotine dependence, cigarettes, uncomplicated; Z79.899 Other long term (current) drug therapy
CPT/HCPCS: 36415; 71045; 80053; 83690; 84484; 85025; 93005; 94760

== ENCOUNTER 2019-07-08 11:33 | Emergency (ER) | payer SELFPAY ==
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
[2019-07-08] MEDS ORDERED: Ketorolac Tromethamine 30 MG/ML VIAL ONE (12:31)
== END 2019-07-08 12:45 | disposition home or self-care (01) ==
LOC: ERS 11:33
DX: S93.501A Unspecified sprain of right great toe, initial encounter (principal); S93.504A Unspecified sprain of right lesser toe(s), initial encounter; V89.9XXA Person injured in unspecified vehicle accident, initial encounter; F17.210 Nicotine dependence, cigarettes, uncomplicated
CPT/HCPCS: 96372; J1885

== ENCOUNTER 2019-10-27 00:53 | Emergency (ER) | payer SELFPAY ==
[2019-10-27] MEDS ORDERED: Mag-Al 1200 mg/1200 mg/30 ML UDCUP ONE (01:08)
[2019-10-27] MEDS ORDERED: Lidocaine Viscous Sol 2% 15 ml UD Cup ONE (01:08)
[2019-10-27] MEDS ORDERED: Ondansetron PF 4 MG/2 ML Vial ONE (01:08)
[2019-10-27 01:32] LABS: #Basophils 0.1 thou/uL (0.0-0.2); #Lymphocytes 2.2 thou/uL (1.20-3.40); #Monocytes 0.5 thou/uL (0.11-0.59); #Neutrophils 2.2 thou/uL (1.40-6.50); %Basophils 1.1 % (0.0-1.0); %Eosinophils 0.7 % (0.0-10.0); %Lymphocytes 44.1 % (21.0-51.0); %Monocytes 9.8 % (0.0-10.0); %Neutrophils 44.3 % (42.0-75.0); Hemoglobin 12.6 g/dL (12.0-16.0); Mean Corpuscular HGB CONC 33.3 g/dL (32.0-36.0); Mean Corpuscular Hemoglobin 30.2 pg (27.0-31.0); Mean Corpuscular Volume 90.7 fL (78.0-98.0); Mean Platelet Volume 7.4 fL (7.4-10.4); Platelet Count 251 thou/uL (130-400); RBC Distribution Width 11.9 % (11.5-14.5); Red Blood Cell (RBC) Count 4.18 mill/uL (4.20-5.40)
[2019-10-27 01:41] LABS: Bacteria/HPF None Seen HPF (None Seen); Bilirubin Negative (Negative); Blood, Urine Negative (Negative); Clarity Clear (Clear); Glucose, Urine (Dipstick) Normal (Negative); Leukocyte 25 Leu/uL (Negative); Nitrite Negative (Negative); Protein, Urine (Dipstick) 20 mg/dL (Neg-Trace)
[2019-10-27 01:42] LABS: Pregnancy Test - Urine (BHCG) Negative (Negative); Pregu Control Background? CLEAR/WHITE (CLR/WHITE); Pregu Control Bar Appear? YES (CONTROL BAR); Specific Gravity 1.027 (1.002-1.036)
[2019-10-27 01:44] LABS: ALT (SGPT) 13 U/L (8-55); AST (SGOT) 17 U/L (5-34); Albumin 4.2 g/dL (3.5-5.0); Alkaline Phosphatase 58 U/L (40-110); Anion Gap 9 mmol/L (10-20); BUN (Urea Nitrogen) 5 mg/dL (7.0-18.7); Bilirubin, Total 0.4 mg/dL (0.2-1.2); Calc. Creatinine Clearance 0 mL/min (70-130); Carbon Dioxide 28 mmol/L (22-29); Chloride 106 mmol/L (98-107); Estimated GFR-MDRD Greater than 90; Globulin 3.9 g/dL (2.4-3.5); Glucose 85 mg/dL (70-105); Lipase 50 U/L (8-78); Potassium 3.7 mmol/L (3.5-5.1); Protein, Total 8.1 g/dL (6.0-8.3); Sodium 139 mmol/L (136-145)
[2019-10-27] MEDS ORDERED: Sucralfate 1 GM/10 ML UDCUP ONE (02:16)
--- NOTE | 2019-10-27 08:06 | RAD ---
CHEST 1 VIEW: Date: 10/27/2019 HISTORY: Chest pain. COMPARISON: Chest radiograph dated 11/16/2018. FINDINGS: Lungs are clear. No pneumothorax or effusion. Cardiac silhouette and mediastinal contour within dontrell l limits. No acute osseous abnormality. IMPRESSION: No acute intrathoracic abnormality. POS: [facility]
== END 2019-10-27 02:31 | disposition home or self-care (01) ==
LOC: ERS 00:53
DX: R10.13 Epigastric pain (principal); R07.9 Chest pain, unspecified; F17.210 Nicotine dependence, cigarettes, uncomplicated; I10 Essential (primary) hypertension; Z79.899 Other long term (current) drug therapy
CPT/HCPCS: 71045; 80053; 81003; 81015; 81025; 83690; 84484; 85025; 93005; 96374; J2405

== ENCOUNTER 2020-01-02 18:28 | Emergency (ER) | payer BC, OTHER ==
[~2020-01-02 18:28] MED LIST: Iopamidol-370 76% 500 ML 1 ML ONE
[2020-01-02 19:01] LABS: #Lymphocytes 1.3 thou/uL (1.20-3.40); #Monocytes 0.2 thou/uL (0.11-0.59); #Neutrophils 9.1 thou/uL (1.40-6.50); %Eosinophils 0.1 % (0.0-10.0); %Lymphocytes 12.1 % (21.0-51.0); %Neutrophils 85.8 % (42.0-75.0); Hemoglobin 13.5 g/dL (12.0-16.0); Mean Corpuscular HGB CONC 33.7 g/dL (32.0-36.0); Mean Corpuscular Hemoglobin 30.8 pg (27.0-31.0); Mean Corpuscular Volume 91.5 fL (78.0-98.0); Mean Platelet Volume 7.1 fL (7.4-10.4); Platelet Count 289 thou/uL (130-400); RBC Distribution Width 12.5 % (11.5-14.5); Red Blood Cell (RBC) Count 4.39 mill/uL (4.20-5.40); White Blood Cell (WBC) Count 10.6 thou/uL (4.8-10.8)
[2020-01-02 19:27] LABS: ALT (SGPT) 52 U/L (8-55); AST (SGOT) 38 U/L (5-34); Albumin 4.5 g/dL (3.5-5.0); Alkaline Phosphatase 57 U/L (40-110); Anion Gap 13 mmol/L (10-20); BUN (Urea Nitrogen) 10 mg/dL (7.0-18.7); Bilirubin, Total 0.4 mg/dL (0.2-1.2); Calc. Creatinine Clearance 0 mL/min (70-130); Calcium 9.5 mg/dL (7.8-10.44); Carbon Dioxide 24 mmol/L (22-29); Chloride 100 mmol/L (98-107); Estimated GFR-MDRD 75; Globulin 4.2 g/dL (2.4-3.5); Glucose 123 mg/dL (70-105); Lipase 32 U/L (8-78); Potassium 3.4 mmol/L (3.5-5.1); Protein, Total 8.7 g/dL (6.0-8.3); Sodium 134 mmol/L (136-145)
[2020-01-02] MEDS ORDERED: Ondansetron PF 4 MG/2 ML Vial ONE (21:14)
[2020-01-02] MEDS ORDERED: Ketorolac Tromethamine 30 MG/ML VIAL ONE (21:14)
[2020-01-02 22:02] LABS: Bilirubin Negative (Negative); Blood, Urine Negative (Negative); Clarity Clear (Clear); Glucose, Urine (Dipstick) Normal (Negative); Leukocyte Negative Leu/uL (Negative); Nitrite Negative (Negative); Protein, Urine (Dipstick) Negative (Neg-Trace); Urobilinogen Normal mg/dL (Less than 2)
[2020-01-02 22:04] LABS: Pregnancy Test - Urine (BHCG) Negative (Negative); Pregu Control Background? CLEAR/WHITE (CLR/WHITE); Pregu Control Bar Appear? YES (CONTROL BAR); Specific Gravity 1.051 (1.002-1.036)
--- NOTE | 2020-01-02 22:16 | CT ---
CT ABDOMEN AND PELVIS WITH IV CONTRAST: Indications: Right upper quadrant pain. Comparison: 05-18-18 FINDINGS: Lung bases clear. Liver, spleen, and pancreas unremarkable. Post cholecystectomy. Stomach unremarkable. Adrenal glands and kidneys unremarkable. There is prominence of the right adrenal gland which is stable from 05-18-18, possibly representing be nign adenoma. Small bowel loops normal. Appendix not identified. No evidence of appendicitis. Colon unremarkable. Aorta normal caliber. Images through the pelvis unremarkable. Evidence of hysterectomy. Aorta normal caliber. IMPRESSION: No acute finding. POS: [facility]
== END 2020-01-02 22:11 | disposition home or self-care (01) ==
LOC: ERS 18:28
DX: R10.9 Unspecified abdominal pain (principal); I10 Essential (primary) hypertension; F17.210 Nicotine dependence, cigarettes, uncomplicated; Z79.899 Other long term (current) drug therapy
CPT/HCPCS: 36415; 74177; 80053; 81003; 81025; 83690; 85025; 96374; 96375; J1885; J2405; Q9967

== ENCOUNTER 2020-01-04 23:26 | Emergency (ER) | payer BC ==
[2020-01-05] MEDS ORDERED: Ketorolac Tromethamine 30 MG/ML VIAL ONE (00:10)
[2020-01-05] MEDS ORDERED: Ondansetron PF 4 MG/2 ML Vial ONE (00:10)
--- NOTE | 2020-01-05 07:41 | RAD ---
EXAM: Chest 2 views: HISTORY: Chest pain COMPARISON: 08/14/2005 FINDINGS: There is a normal-sized cardiomediastinal silhouette. A reticulonodular pattern projecting over the r ight lower lobe may represent a reticulonodular infiltrate versus something external to the patient. The bones are unremarkable. IMPRESSION: Possible right lower lobe interstitial infiltrate.
== END 2020-01-05 00:50 | disposition home or self-care (01) ==
LOC: ERS 23:26
DX: R11.2 Nausea with vomiting, unspecified (principal); R05 Cough; I10 Essential (primary) hypertension; F17.210 Nicotine dependence, cigarettes, uncomplicated; Z79.899 Other long term (current) drug therapy
CPT/HCPCS: 71046; 96374; 96375; J1885; J2405

== ENCOUNTER 2021-04-17 17:08 | Emergency (ER) | payer BC | END 2021-04-17 21:25 | disposition left against medical advice (07) | LOC: ERS 17:08 | DX: Z53.21 Procedure and treatment not carried out due to patient leaving prior to being seen by health care provider (principal) ==

== ENCOUNTER 2021-06-21 18:51 | Emergency (ER) | payer BC ==
[2021-06-21 19:46] LABS: Hemoglobin 12.3 g/dL (12.0-16.0); Mean Corpuscular HGB CONC 34.7 g/dL (32.0-36.0); Mean Corpuscular Hemoglobin 32.4 pg (27.0-31.0); Mean Corpuscular Volume 93.5 fL (78.0-98.0); Mean Platelet Volume 7.5 fL (7.4-10.4); Platelet Count 238 thou/uL (130-400); RBC Distribution Width 12.3 % (11.5-14.5); White Blood Cell (WBC) Count 5.7 thou/uL (4.8-10.8)
[2021-06-21] MEDS ORDERED: Promethazine HCl 25 MG/ML VIAL ONE (19:54)
[2021-06-21] MEDS ORDERED: Acetaminophen 500 MG TAB ONE (19:54)
[2021-06-21 20:00] LABS: Lymphocytes 44 % (21-51); MDiff Complete? YES; Monocytes 6 % (0-10); Neutrophil 49 % (42-75); Platelet Morphology Comment Appears Adequate; RBC Morphology Normal; Reactive Lymphocytes 1 % (0-10)
[2021-06-21 20:05] LABS: ALT (SGPT) 15 U/L (8-55); AST (SGOT) 21 U/L (5-34); Alkaline Phosphatase 53 U/L (40-110); Anion Gap 13 mmol/L (10-20); BUN (Urea Nitrogen) 8 mg/dL (7.0-18.7); Bilirubin, Total 0.4 mg/dL (0.2-1.2); Calc. Creatinine Clearance 0 mL/min (70-130); Carbon Dioxide 26 mmol/L (22-29); Chloride 104 mmol/L (98-107); Globulin 4.2 g/dL (2.4-3.5); Glucose 95 mg/dL (70-105); Potassium 3.6 mmol/L (3.5-5.1); Protein, Total 8.2 g/dL (6.0-8.3); Sodium 139 mmol/L (136-145)
[2021-06-21 20:24] LABS: Bilirubin Negative (Negative); Blood, Urine Negative (Negative); Clarity Clear (Clear); Glucose, Urine (Dipstick) Normal (Negative); Ketone, Urine Negative (Negative); Leukocyte Negative Leu/uL (Negative); Nitrite Negative (Negative); Protein, Urine (Dipstick) Negative (Neg-Trace); Specific Gravity, Urine 1.013 (1.002-1.036); Urobilinogen Normal mg/dL (Less than 2)
[2021-06-21 20:25] LABS: Pregnancy Test - Urine (BHCG) Negative (Negative); Pregu Control Background? CLEAR/WHITE (CLR/WHITE); Pregu Control Bar Appear? YES (CONTROL BAR); Specific Gravity 1.013 (1.002-1.036)
== END 2021-06-21 21:25 | disposition home or self-care (01) ==
LOC: ERS 18:51
DX: I10 Essential (primary) hypertension (principal); R51.9 Headache, unspecified; R07.89 Other chest pain; F17.210 Nicotine dependence, cigarettes, uncomplicated
CPT/HCPCS: 70450; 80053; 81003; 81025; 84484; 85025; 93005; 96365; J2550

== ENCOUNTER 2022-02-17 09:26 | Emergency (ER) | payer OTHER, SELFPAY ==
[2022-02-17] MEDS ORDERED: Ketorolac Tromethamine 30 MG/ML VIAL ONE (11:18)
[2022-02-17] MEDS ORDERED: Diazepam 5 MG TAB ONE (11:18)
[2022-02-17] MEDS ORDERED: methylPREDNISolone Sod Succ 40 MG VIAL ONE (11:18)
== END 2022-02-17 12:27 | disposition home or self-care (01) ==
LOC: ERS 09:26
DX: M54.42 Lumbago with sciatica, left side (principal)
CPT/HCPCS: 96372; 99283; J1885; J2920

== ENCOUNTER 2022-05-16 04:31 | Emergency (ER) | payer OTHER ==
[2022-05-16] MEDS ORDERED: Ondansetron ODT 8 MG TAB ONE (05:02)
[2022-05-16] MEDS ORDERED: Acetaminophen 500 MG TAB ONE (05:02)
== END 2022-05-16 06:20 | disposition home or self-care (01) ==
LOC: ERS 04:31
DX: B34.9 Viral infection, unspecified (principal); Z20.822 Contact with and (suspected) exposure to COVID-19; I10 Essential (primary) hypertension; F17.210 Nicotine dependence, cigarettes, uncomplicated; Z79.899 Other long term (current) drug therapy
CPT/HCPCS: 87804; 99284; Q0162; U0003; U0005

== ENCOUNTER 2023-09-02 15:57 | Emergency (ER) | payer OTHER, SELFPAY | END 2023-09-02 18:51 | disposition left against medical advice (07) | LOC: ERS 15:57 | DX: Z53.21 Procedure and treatment not carried out due to patient leaving prior to being seen by health care provider (principal) ==

== ENCOUNTER 2024-07-18 11:30 | Emergency (ER) | payer OTHER, BC | END 2024-07-18 12:28 | disposition left against medical advice (07) | LOC: ERS 11:30 | DX: Z53.21 Procedure and treatment not carried out due to patient leaving prior to being seen by health care provider (principal) ==